=== PATIENT | male | born 2000 | race African-American/Black ===

== ENCOUNTER 2019-03-06 17:49 | Inpatient (IN) | payer OTHER ==
[~2019-03-06] VITALS: Ht 172.7 cm; Wt 72.5 kg
[2019-03-06 18:45] LABS: HEMATOCRIT 44.1 % (42.0-52.0); HEMOGLOBIN 14.3 g/dl (13.5-17.5); MEAN CORPUSCULAR HEMOGLOBIN 29.2 pg (27.0-33.0); MEAN CORPUSCULAR HGB CONC 32.4 g/dl (32.0-36.5); MEAN CORPUSCULAR VOLUME 90.2 fl (80.0-96.0); PLATELET COUNT, AUTOMATED 270 10^3/uL (150-450); RED BLOOD COUNT 4.89 10^6/uL (4.30-6.10); WHITE BLOOD COUNT 4.5 10^3/uL (4.0-10.0)
[2019-03-06 19:10] LABS: ACETAMINOPHEN LEVEL < 2.0 UG/ML (10.0-30.0); ALBUMIN 3.8 GM/DL (3.2-5.2); ALT/SGPT 25 U/L (12-78); BILIRUBIN,DIRECT 0.2 MG/DL (0.0-0.2); BILIRUBIN,TOTAL 0.5 MG/DL (0.2-1.0); BLOOD UREA NITROGEN 7 MG/DL (7-18); CALCIUM LEVEL 8.6 MG/DL (8.5-10.1); CARBON DIOXIDE LEVEL 28 MEQ/L (21-32); CHLORIDE LEVEL 108 MEQ/L (98-107); CREATININE FOR GFR 0.97 MG/DL (0.70-1.30); ETHYL ALCOHOL (ETHANOL) < 0.003 % (0.000-0.010); GLUCOSE, FASTING 86 MG/DL (70-100); POTASSIUM SERUM 3.9 MEQ/L (3.5-5.1); SALICYLATE LEVEL < 1.7 MG/DL (5.0-30.0); SODIUM LEVEL 142 MEQ/L (136-145); THYROID STIMULATING HORMONE 0.444 uIU/ML (0.463-3.98)
[2019-03-06] MEDS ORDERED: ACETAMINOPHEN TAB 650MG DOSE (2X325MG) PO PRN (20:15)
[2019-03-06] MEDS ORDERED: traZODone 50 MG TAB PO PRN (20:15)
[2019-03-06] MEDS ORDERED: MOM 30ML SUSPENSION UDC PO PRN (20:15)
[2019-03-06] MEDS ORDERED: MAALOX 30 ML SUSP *UDC PO PRN (20:15)
[2019-03-06 20:23] LABS: AMPHETAMINES LEVEL URINE NEGATIVE (NEGATIVE); BARBITURATES URINE NEGATIVE (NEGATIVE); BENZODIAZEPINES URINE NEGATIVE (NEGATIVE); CANNABINOIDS URINE POSITIVE (NEGATIVE); COCAINE METABOLITE URINE NEGATIVE (NEGATIVE); METHADONE URINE NEGATIVE (NEGATIVE); OPIATES URINE NEGATIVE (NEGATIVE); PHENCYCLIDINE URINE NEGATIVE (NEGATIVE)
[2019-03-06] MEDS: NICOTINE 21MG/24HR 1 EA TRANSDERMAL TD SCH (20:49)
[2019-03-06 23:05] VITALS: BP 123/79
[2019-03-07 06:39] VITALS: BP 130/62
[2019-03-07] MEDS: NICOTINE 21MG/24HR 1 EA TRANSDERMAL TD SCH (09:27)
[2019-03-07] MEDS: risperiDONE 0.5 MG TAB PO SCH ×3 (11:43→20:12)
[2019-03-07] MEDS ORDERED: hydrOXYzine 25 MG TAB PO PRN (12:00)
[2019-03-07] MEDS ORDERED: NICOTINE POLACRILEX 2 MG GUM PO ONE (12:00)
[2019-03-07] MEDS ORDERED: NICOTINE POLACRILEX 2 MG GUM PO PRN (12:00)
[2019-03-07 12:37] LABS: FREE THYROXINE INDEX 1.7 % (1.4-3.8); T UPTAKE 30 % (33-40); THYROXINE (T4) 5.5 UG/DL (6.0-11.6)
[2019-03-07] MEDS: TRIAMCINOLONE ACET 0.1% OINTMENT 15 GM TOP SCH ×2 (13:00→20:12)
[2019-03-07] MEDS ORDERED: CETIRIZINE (ZyrTEC) 10 MG TAB PO ONE (13:00)
[2019-03-07] MEDS: SODIUM CHLORIDE NASAL 0.65% SPRAY BTL (OCEAN) SCH ×2 (16:36→20:13)
[2019-03-07 18:10] VITALS: BP 120/82
--- NOTE | 2019-03-07 19:18 | MHHPE ---
DATE OF ADMISSION: 03/06/2019 CURRENT MEDICATIONS: None. CHIEF COMPLAINT: Patient brought in by police with suicidal ideation. 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 Patient is being chaptered out of the [employer] after three AWOL attempts. police apparently were planning on doing a pretrial confinement prior to court martial. At this time he reported suicidal threats with plans to harm himself by any means possible. Patient then describes potential suicide attempts of hanging himself or making a shank to stab himself. Patient feels stressed and overwhelmed by his position in the [employer]. He feels he made a mistake entering the [employer] one year ago. He misses his children back in [place]. His appetite is poor. His weight is stable. He reports decrease in interest. He reports poor concentration. He has trouble sleeping at night. Patient does report active auditory hallucinations. He hears a female's voice telling him homicidal content. He hears a male voice as well that is secondary, that also supports harming himself or others. He also reports paranoia. He states people follow him. He cannot trust people, especially his chain of command. The patient's currently is in assisted in [place] for neglect. His two young children, age 1 and 2 boy and girl were found malnourished. The patient and his lost custody. Currently the patient's father has custody and the children are safe. The patient's chain of command volunteers that the patient's behavior is very unpredictable and they are not sure of what he could be capable of. PAST PSYCHIATRIC HISTORY: Patient tried to commit suicide by hanging himself at age 11. He was hospitalized for one month. He was placed on Zoloft at the time. He claims it was a high dose that made him feel sedated. He has been on no other psychotropics he reports. PAST MEDICAL HISTORY: Patient reports being healthy. ALLERGIES: Patient denies. LEGAL ISSUES: Patient has a court date coming up soon for theft of service. He has a long criminal history prior to entering the [employer] in juvenile court. He currently is being chaptered out of the and will be court martialed according to staff. CHEMICAL DEPENDENCY: Cannabis is his drug of choice. He did use cocaine the other day for the first time. He denies use of other substances. SOCIAL HISTORY: Patient born and raised in [place], [place]. He is a high school graduate. His currently is in assisted for neglect. Patient never knew his biological father. Patient's adopted father is raising his two young children. The relationship with his mother is good. Patient has two sisters. FAMILY PSYCHIATRIC HISTORY: There is history of bipolar disorder and schizophrenia on his mother's side of the family. MENTAL STATUS EXAM: Patient is alert, oriented and reasonably cooperative. Speech is quite rapid and pressured with depressive content. He reports suicidal and homicidal ideation. He reports auditory hallucinations, command in nature to harm himself or others. He also reports paranoid ideation. Insight is poor. Judgment is poor. Patient is a potential danger to self and others in my opinion. Grooming and hygiene are marginal. Patient's impulse control is problematic. No signs of cognitive deficits. ASSESSMENT: Patient appears to have a chronic psychotic disorder dating back to childhood. He reports having these auditory hallucinations back to at least age 11. Given his family history of bipolar disorder and schizophrenia the patient appears to have a diagnosis of schizoaffective disorder. LENGTH OF STAY: 7 to 10 days. DIAGNOSES: Schizoaffective disorder, depressed. Cannabis use disorder. PLAN: Confirm 9.39. Start trial of Risperdal 0.5 mg four times a day. Dose will be increased as necessary. Followup in hospital milieu. Staff to work on discharge planning, coordinating with [facility].
[2019-03-08 06:31] VITALS: BP 115/73
--- NOTE | 2019-03-08 09:17 | HPE ---
DATE OF ADMISSION: 03/06/2019 Patient is admitted to inpatient mental health unit for unspecified depression. Patient complains of nasal congestion, nasal headache without fever or chills. Patient had cough a few weeks ago but it has subsided. Occasional shortness of breath when he feels congested. No other past medical history aside from wisdom teeth extraction times four teeth 2016 and dental fillings. Patient has had some decrease in appetite but no weight loss. No complaints of odynophagia or dysphagia. PAST MEDICAL HISTORY: [place] teeth extraction times four and dental fillings. PAST SURGICAL HISTORY: [place] teeth extraction, dental fillings. ALLERGIES: To LATEX, rash with a nicotine patch. HOME MEDICATIONS: None. HOSPITAL MEDICATIONS: - Risperdal 0.5 four times a day - trazodone 50 nightly as needed - Tylenol 650 every 6 - Milk of Magnesia 30 mL daily as needed - Mylanta 30 mL every 4 as needed - nicotine patch 21 mg daily SOCIAL HISTORY: Patient drinks hard liquor, beer, anything, half a bottle usually three times a day. Uses marijuana. Patient drinks Patron. Smokes four packs a day of cigarettes since the age of 15. Active duty . FAMILY HISTORY: Mother in her 30s with hypertension. Unknown medical problems for the father. One brother. One sister. REVIEW OF SYSTEMS: Per history of present illness (HPI). 12 point system otherwise negative. PHYSICAL EXAMINATION: Temperature 97.8, pulse 58, respiratory rate 14, blood pressure 130/62, 98% on room air. Generally awake, alert, oriented times three. Boggy nasal turbinates. No tonsillar exudate. No cervical lymphadenopathy, thyromegaly. Pupils round, reactive. Extraocular muscles are intact. Anicteric sclerae. No jaundice. Lungs are clear to auscultation. No wheezing, rales or rhonchi. Heart: S1, S2, sinus rhythm. No murmurs, rubs or gallops. Abdomen is soft, nontender, nondistended. Positive bowel sounds. Extremities: No cyanosis, clubbing or pitting edema. There is an erythematous pruritic rash noted on the right arm where the nicotine patch had been. LABORATORY DATA: White count 4.5, hemoglobin 14, hematocrit 44, platelet count 270. Sodium 142, potassium 3.9, chloride 108, bicarbonate 28, BUN 7, creatinine 0.97, glucose of 86. Total bilirubin 0.5, direct bilirubin 0.2, AST 18, ALT 25, total protein 7, albumin 3.8, TSH 0.44. ASSESSMENT AND PLAN: 18-year-old, active duty , admitted for depression found to have alcohol and tobacco abuse, allergic to nicotine patch, currently on nicotine gum with abnormal thyroid-stimulating hormone (TSH). IMPRESSION: 1. Rash secondary to nicotine patch. This has been discontinued, currently on Nicorette two every 2 hours as needed. 2. Rash secondary to nicotine patch. Topical triamcinolone twice a day 4 or 5 days. 3. Unspecified depression. Defer to psychiatrist. 4. Abnormal thyroid function test. Repeat thyroid profile. Rule out hypothyroidism. 5. Deep venous thrombosis (DVT) prophylaxis. Encourage ambulation. Edited: 03/08/2019 0916 ynes ALVARES
[2019-03-08] MEDS: CETIRIZINE (ZyrTEC) 10 MG TAB PO SCH (09:28)
[2019-03-08] MEDS: TRIAMCINOLONE ACET 0.1% OINTMENT 15 GM TOP SCH ×2 (09:28→20:36)
[2019-03-08] MEDS: risperiDONE 0.5 MG TAB PO SCH ×2 (09:28→12:40)
[2019-03-08] MEDS: FLUTICASONE PROP 0.05% NASAL SPRAY 16 GM (FLONASE) NARES SCH (09:30)
[2019-03-08] MEDS: SODIUM CHLORIDE NASAL 0.65% SPRAY BTL (OCEAN) SCH ×3 (09:30→20:36)
--- NOTE | 2019-03-08 10:21 | MHIPNPDOC ---
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 Instead of going to pretrial prison he had come to the hospital claiming he was suicidal, stating that it was contention upon him being sent to group home. He additionally reported vague auditory hallucinations. He was treated and it appeared quite clear that he was presenting for secondary gain and to avoid group home time. Interval History The patient was met with and interviewed extensively in the presence of 2 nurses. The patient reported that he was interested in going back home to [place] and was quite future orientated. He had been having suicidal and homicidal ideation through his stay, only presenting this to a psychiatrist who had previously seen him on the initial evaluation. The patient was normal without any thought process distortions. It was noted that on his meetings with the nurses he was completely normal. He had been placed on risperidone, but only taken 1 or 2 doses noting that he felt that there was quite a bit of side effects and he felt quite bad on it. He reported that he does not have consistent auditory hallucinations. After a great amount of counseling and coaching, the patient was able to understand that avoiding pretrial detainment will likely extend his detainment and seem to generate good insight into this contradicting the diagnosis of schizoaffective. Review Of Systems Reports sedation and "not feeling good." Psychotherapy None on this visit. Vital Signs Reviewed. Mental Status Examination General: Well dressed with good hygiene Speech: Spontaneous and fluid Thought processes: Linear and logical MSK: Smooth and coordinated gait, no signs of tremors or involuntary orofacial movements Thought content: Future orientated Abstract reasoning, and computation: Intact Description of associations: Intact Description of abnormal or psychotic thoughts: Denies any suicidal or homicidal ideation. Denies any auditory or visual hallucinations. Does not appear to be responding to internal stimuli. Does not appear to be endorsing any bizarre or paranoid ideation. Judgment: fair Insight: fair Orientation: Alert and orientated 3 Cognition: Grossly normal Recent and remote memory: Intact Attention span and concentration: Intact Fund of knowledge: Adequate Mood: "okay" Affect: Euthymic with a full range Diagnoses Adjustment disorder, mild Antisocial personality disorder Tobacco use disorder, severe Cocaine use disorder, severe Cannabis use disorder, severe malingering Assessment and Plan Adjustment disorder: Recommend therapy appears to resolve well Antisocial personality disorder: Chronic, recommend long-term therapy Tobacco, cocaine and cannabis use disorder: Recommend abstinence Disposition The patient will be discharged tomorrow to the care of his chain of command who will then proceed with pretrial detainment. The patient is denying any suicidal or homicidal ideation and appears to be nonpsychotic. I would happen to postulate that the diagnosis of schizoaffective disorder is made prematurely as the patient is demonstrating no signs or symptoms of psychosis on my examination and review of the notes. He appears to presented initially in adjustment state after being told that he would be placed in a pretrial prison and likely had some malingering present as well. He doesn't meet involuntary criteria for further extension of his admission in my clinical judgment due to the proponents of statements, diagnosis and mental status exam above. He does not make a sufficient voluntary admission as he is not expressing any psychiatric symptoms consistently that can be objectively seen. He appears social and well, engage on the unit with no behavioral problems. Time Spent 25 minutes. Wednesday Vital Signs Vital Signs Date Time Temp Pulse Resp B/P (MAP) Pulse Ox O2 Delivery O2 Flow Rate FiO2 03/08/19 06:31 97.4 62 14 115/73 (87) 03/06/19 23:05 98 Room Air Current Medications Current Medications Medications (Trade) Dose Ordered Sig/Ravin Route PRN Reason Start Time Stop Time Status Last Admin Dose Admin Acetaminophen (Tylenol Tab) 650 mg Q6HP PRN PO HEADACHE or DISCOMFORT 03/06/19 20:15 Al Hydrox/Mg Hydrox/Simethicone (Mylanta) 30 ml Q4HP PRN PO HEARTBURN/INDIGESTION 03/06/19 20:15 Cetirizine HCl (ZyrTEC) 10 mg DAILY PO 03/08/19 09:00 03/08/19 09:28 Fluticasone Propionate (Flonase 0.05% Nasal Biola) 2 spray DAILY NARES 03/08/19 09:00 03/08/19 09:30 Home Med (Med Rec Complete!) ASDIRECTED XX 03/06/19 20:00 03/06/19 19:54 DC Hydroxyzine HCl (Atarax) 25 mg Q4HP PRN PO PRURITIUS 03/07/19 12:00 Magnesium Hydroxide (Milk Of Magnesia) 30 ml DAILYPRN PRN PO CONSTIPATION 03/06/19 20:15 Nicotine (Nicoderm Cq 21mg) 1 patch DAILY TD 03/06/19 09:00 03/07/19 12:53 DC 03/07/19 09:27 Nicotine (Nicorette) 2 mg Q2HP PRN PO NICOTINE WITHDRAWAL 03/07/19 12:00 Risperidone (RisperDAL) 0.5 mg QID PO 03/07/19 12:00 03/08/19 09:28 Sodium Chloride (Scissors Nasal Biola) 2 spray TID NA 03/07/19 16:00 03/08/19 09:30 Trazodone HCl (Desyrel) 50 mg QHSP PRN PO INSOMNIA 03/06/19 20:15 Triamcinolone Acetonide (Kenalog 0.1% Ointment) TO RIGHT ARM WHERE NICOT... BID TOP 03/07/19 13:00 03/11/19 21:01 03/08/19 09:28 Allergies Coded Allergies: No Known Allergies (Unverified , 03/06/19) AVI SOUSA DO Mar 08, 2019 10:21
[2019-03-09 06:37] VITALS: BP 145/75
[2019-03-09] MEDS ORDERED: LOPERAMIDE 2 MG CAPLET PO PRN (08:00)
[2019-03-09] MEDS ORDERED: LOPERAMIDE 2 MG CAPLET PO ONE (08:00)
[2019-03-09] MEDS: SODIUM CHLORIDE NASAL 0.65% SPRAY BTL (OCEAN) SCH (09:00)
[2019-03-09] MEDS: FLUTICASONE PROP 0.05% NASAL SPRAY 16 GM (FLONASE) NARES SCH (09:00)
[2019-03-09] MEDS: CETIRIZINE (ZyrTEC) 10 MG TAB PO SCH (09:00)
[2019-03-09] MEDS: TRIAMCINOLONE ACET 0.1% OINTMENT 15 GM TOP SCH (09:00)
[2019-03-09] MEDS ORDERED: NICO2GUM PO (09:14)
--- NOTE | 2019-03-09 09:17 | MHDSPDOC ---
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 Instead of going to pretrial senior care he had come to the hospital claiming he was suicidal, stating that it was contention upon him being sent to penitentiary. He additionally reported vague auditory hallucinations. He was treated and it appeared quite clear that he was presenting for secondary gain and to avoid penitentiary time. Consultants Involved Hospitalist/PCP screening Treatment and Progress On The Unit The patient was admitted to the inpatient unit and initially believed to be schizophrenic, however his psychotic symptoms were vague and undescribed. No objective mental status symptoms reported. He appeared to only demonstrate unusual behavior around the psychiatrist and was started on risperidone with poor results. He did not tolerate it well and reported that it made him feel really sleepy. After assessing the patient, reviewing the chart, it became quite clear that the patient was primarily antisocial and malingering to avoid penitentiary time even by his own admission, his presentation was prompted by such. He reports after great counseling and prompting that he is ready to leave. He denies any auditory or visual hallucinations to myself and has denied suicidal or homicidal ideation for the last day. The patient was taken off the risperidone as it's highly likely to be unhelpful as the patient is likely antisocial and my clinical judgment with an adjustment problem among multiple substance problems and has significant reason to malinger as he has by his own report wanted to remain out of pretrial custody. On the day of discharge, the patient did not meet involuntary criteria as he had been denying suicidal or homicidal ideation, he has primarily chronic risk factors for violence and suicide mainly his antisocial personality, but that his mental status was normal and that he was able to attend to his needs and was future orientated discussing how he wished to go to his son in [place] after he had finished his pretrial commitment. The patient did not warrant further voluntary admission as his adjustment symptoms appear to resolve well and no longer appeared to be suffering from an acute mental illness necessitating further voluntary admission. He additionally declined further voluntary admission after discussion about the risks and benefits of continued treatment versus his pretrial commitment. Discharge Assessment 18-year-old young man with very likely antisocial personality disorder and malingering among adjustment problems after being told that he would be placing pretrial commitment prior to his trial for various crimes namely going AWOL in the . The patient by his own admission in the ER appears to claim that he was here in order to avoid going to pretrial commitment. He appears to have manufactured, in my opinion, auditory hallucinations that do not appear to manifest themselves and any discernible mental status exams other than the psychiatrists of which it appears that he will generally present much sicker and with manufactured symptoms to specifically avoid this outcome. After discussing with him at some length, he was quite future orientated, wanting to go to see his son in [place] and had denied suicidal thoughts likely further reinforcing my. Supposition that he was malingering and unlikely has a psychotic illness. Mental Status Examination General: Well dressed with good hygiene Speech: Spontaneous and fluid Thought processes: Linear and logical MSK: Smooth and coordinated gait, no signs of tremors or involuntary orofacial movements Thought content: Future orientated Abstract reasoning, and computation: Intact Description of associations: Intact Description of abnormal or psychotic thoughts: Denies any suicidal or homicidal ideation. Denies any auditory or visual hallucinations. Does not appear to be responding to internal stimuli. Does not appear to be endorsing any bizarre or paranoid ideation. Judgment: fair Insight: fair Orientation: Alert and orientated 3 Cognition: Grossly normal Recent and remote memory: Intact Attention span and concentration: Intact Fund of knowledge: Adequate Mood: "okay" Affect: Euthymic with a full range Follow Up The social work team worked during the predischarge meeting in order to evaluate for further issues of lethality address them fully before discharge. They worked on safety planning with the patient's family members in order to ensure that the patient will have a safe and effective discharge. Time Spent The amount of time spent in the coordination of care for this patient was approximately 60 minutes. Vital Signs/I&Os Vital Signs Date Time Temp Pulse Resp B/P (MAP) Pulse Ox O2 Delivery O2 Flow Rate FiO2 03/09/19 06:37 98.6 73 14 145/75 (98) Room Air 03/06/19 23:05 98 Medications Scheduled PRN Nicotine Polacrilex (Nicotine Gum) 2 Mg Gum, 2 MG PO Q2HP PRN for NICOTINE WITHDRAWAL for 30 Days, #30 Allergies Coded Allergies: No Known Allergies (Unverified , 03/06/19) AVI SOUSA DO Mar 09, 2019 09:17
== END 2019-03-09 10:30 | DRG 882 ==
LOC: M ED 17:49 → M ED INP 20:11 → M PSY 21:38
PROVIDERS: ADMIT Psychiatry & Neurology Psychiatry; ATTEND Psychiatry & Neurology Addiction Medicine
DX: F43.20 Adjustment disorder, unspecified (principal); F14.20 Cocaine dependence, uncomplicated; F17.210 Nicotine dependence, cigarettes, uncomplicated; Z76.5 Malingerer [conscious simulation]; F12.20 Cannabis dependence, uncomplicated; F10.20 Alcohol dependence, uncomplicated; F60.2 Antisocial personality disorder; F32.9 Major depressive disorder, single episode, unspecified; E03.9 Hypothyroidism, unspecified; R09.81 Nasal congestion; R51 Headache; R94.6 Abnormal results of thyroid function studies; Z81.8 Family history of other mental and behavioral disorders; Z88.8 Allergy status to other drugs, medicaments and biological substances; Z91.040 Latex allergy status; Z79.899 Other long term (current) drug therapy; Z91.5 Personal history of self-harm; Z56.89 Other problems related to employment; Z63.5 Disruption of family by separation and divorce

== ENCOUNTER 2019-03-10 18:52 | Emergency (ER) | payer OTHER ==
[~2019-03-10] VITALS: Ht 172.7 cm; Wt 69.1 kg
[~2019-03-10 18:52] MED LIST: NICO2GUM PO
[2019-03-10 20:23] LABS: HEMATOCRIT 48.5 % (42.0-52.0); HEMOGLOBIN 16.1 g/dl (13.5-17.5); MEAN CORPUSCULAR HEMOGLOBIN 29.4 pg (27.0-33.0); MEAN CORPUSCULAR HGB CONC 33.2 g/dl (32.0-36.5); MEAN CORPUSCULAR VOLUME 88.5 fl (80.0-96.0); PLATELET COUNT, AUTOMATED 316 10^3/uL (150-450); RED BLOOD COUNT 5.48 10^6/uL (4.30-6.10)
[2019-03-10 21:02] LABS: ACETAMINOPHEN LEVEL < 2.0 UG/ML (10.0-30.0); ALBUMIN 4.7 GM/DL (3.2-5.2); ALT/SGPT 27 U/L (12-78); AMPHETAMINES LEVEL URINE NEGATIVE (NEGATIVE); BARBITURATES URINE NEGATIVE (NEGATIVE); BENZODIAZEPINES URINE NEGATIVE (NEGATIVE); BILIRUBIN,DIRECT 0.2 MG/DL (0.0-0.2); BLOOD UREA NITROGEN 17 MG/DL (7-18); CALCIUM LEVEL 9.9 MG/DL (8.5-10.1); CANNABINOIDS URINE POSITIVE (NEGATIVE); CARBON DIOXIDE LEVEL 28 MEQ/L (21-32); CHLORIDE LEVEL 104 MEQ/L (98-107); COCAINE METABOLITE URINE NEGATIVE (NEGATIVE); CREATININE FOR GFR 0.95 MG/DL (0.70-1.30); ETHYL ALCOHOL (ETHANOL) < 0.003 % (0.000-0.010); GLUCOSE, FASTING 79 MG/DL (70-100); METHADONE URINE NEGATIVE (NEGATIVE); OPIATES URINE NEGATIVE (NEGATIVE); PHENCYCLIDINE URINE NEGATIVE (NEGATIVE); POTASSIUM SERUM 4.2 MEQ/L (3.5-5.1); SALICYLATE LEVEL < 1.7 MG/DL (5.0-30.0); SODIUM LEVEL 138 MEQ/L (136-145); THYROID STIMULATING HORMONE 0.615 uIU/ML (0.463-3.98); TOTAL PROTEIN 8.3 GM/DL (6.4-8.2)
[2019-03-10 22:15] VITALS: BP 129/83
== END 2019-03-10 22:16 | disposition home or self-care (01) ==
LOC: M ED 18:52
DX: F98.9 Unspecified behavioral and emotional disorders with onset usually occurring in childhood and adolescence (principal); F17.200 Nicotine dependence, unspecified, uncomplicated; J45.909 Unspecified asthma, uncomplicated
CPT/HCPCS: 80048; 80076; 80307; 84443; 85027; 99284; G0480

== ENCOUNTER → 2019-03-22 | Outpatient (CLI) | payer OTHER | LOC: M OUTALCOH 12:44 | PROVIDERS: ATTEND Psychiatry & Neurology Psychiatry | DX: F10.20 Alcohol dependence, uncomplicated (principal); F12.20 Cannabis dependence, uncomplicated ==

== ENCOUNTER 2019-04-18 16:45 | Emergency (ER) | payer OTHER ==
[~2019-04-18] VITALS: Ht 172.7 cm; Wt 66.4 kg
[2019-04-18 16:46] VITALS: BP 133/91
[2019-04-18] MEDS ORDERED: LIDOCAINE W/EPINEPHRINE 1% 20ML VIAL SC ONE (17:30)
[2019-04-18] MEDS ORDERED: AUGMENTIN 875 MG TAB PO ONE (18:00)
[2019-04-18] MEDS ORDERED: AUGM875T28 PO (18:02)
== END 2019-04-18 18:15 | disposition home or self-care (01) ==
LOC: M ED 16:45
DX: S01.511A Laceration without foreign body of lip, initial encounter (principal); W54.0XXA Bitten by dog, initial encounter; Y92.008 Other place in unspecified non-institutional (private) residence as the place of occurrence of the external cause; J45.909 Unspecified asthma, uncomplicated; F17.210 Nicotine dependence, cigarettes, uncomplicated